=== PATIENT | male | born 1970 | race Caucasian/White ===

== ENCOUNTER 2019-03-05 19:26 | Emergency (ER) | payer SELFPAY ==
[~2019-03-05] VITALS: Ht 185.4 cm; Wt 61.2 kg
[2019-03-05 19:30] VITALS: BP_SYST 106
--- NOTE | 2019-03-05 19:40 | NUR ---
Pt to ER with a complaint of left hip aching pain /. No other complaint noted. No respiratory distress noted. Has history of dm. left leg amputated. Safety precaution observed, side rails up. Will continue to monitor Pt.
[2019-03-05] MEDS ORDERED: INSU100V9 SQ (19:41)
[2019-03-05] MEDS ORDERED: MORPHINE 2 MG/ML INJ. SYRINGE IVP ONE ×3 (19:45→23:00)
[2019-03-05] MEDS ORDERED: NACL 0.9% 1,000 ML IV ONE (19:45)
--- NOTE | 2019-03-05 20:00 | NUR ---
ER MD Wade at bedside for medical evaluation.
--- NOTE | 2019-03-05 20:10 | NUR ---
# 20 gauge angiocath placed to RAC. Use of asceptic technique. Opsite placed over site. Blood return noted. Blood for lab drawn from site. Flushed with 10 cc of normal saline. No evidence of infiltration noted. Patient tolerated well.
--- NOTE | 2019-03-05 20:30 | NUR ---
Pt to xray, Pt stable
[2019-03-05 20:31] LABS: BASOPHILS # (AUTO) 0.1 K/uL (0.0-0.2); BASOPHILS % (AUTO) 1.1 % (0.0-2.0); EOSINOPHILS # (AUTO) 0.8 K/uL (0.0-0.4); EOSINOPHILS % (AUTO) 6.6 % (0.0-4.0); HEMATOCRIT 33.4 % (36-54); HEMOGLOBIN 11.2 g/dL (14.0-18.0); LYMPHOCYTES # (AUTO) 4.4 K/uL (1.0-5.5); LYMPHOCYTES % (AUTO) 37.9 % (20.5-51.5); MEAN CORPUSCULAR HEMOGLOBIN 32 pg (27-31); MEAN CORPUSCULAR HGB CONC 34 % (32-36); MEAN CORPUSCULAR VOLUME 94 fL (79.0-98.0); MONOCYTES # (AUTO) 0.6 K/uL (0.0-1.0); MONOCYTES % (AUTO) 5.3 % (1.7-9.3); NEUTROPHILS # (AUTO) 5.7 K/uL (1.8-7.7); NEUTROPHILS % (AUTO) 49.1 % (40.0-70.0); PLATELET COUNT (AUTO) 270 K/uL (130-430); RED BLOOD CELL COUNT(AUTO) 3.53 MIL/uL (4.2-6.2); RED CELL DISTRIBUTION WIDTH 13.8 % (9.0-15.0); WHITE BLOOD COUNT (AUTO) 11.7 K/uL (4.8-10.8)
[2019-03-05 20:45] LABS: ANION GAP 13 (5-15); CALCIUM 9.3 mg/dL (8.4-11.0); CHLORIDE 100 mmol/L (98-107); CREATININE 1.77 mg/dL (0.55-1.30); GLUCOSE 162 mg/dL (70-99); POTASSIUM 4.2 mmol/L (3.5-5.1); SODIUM SERUM 136 mmol/L (136-145); UREA NITROGEN, BLOOD 27 mg/dL (8-21)
--- NOTE | 2019-03-05 20:50 | NUR ---
Pt back in the room
[2019-03-05 20:51] LABS: ACETAMINOPHEN < 1 ug/mL (1-30); ALANINE AMINOTRANSFERASE 34 U/L (12-78); ALBUMIN 3.8 g/dL (3.4-4.8); ALCOHOL, BLOOD 178 mg/dL (<10); ASPARTATE AMINOTRANSFERASE 25 U/L (10-37); GFR AFRICAN AMERICAN 53 mL/min (>90); TOTAL BILIRUBIN 0.1 mg/dL (0.0-1.0)
--- NOTE | 2019-03-05 22:00 | NUR ---
Pt in bed, no acute distress noted. Will continue to monitor Pt.
--- NOTE | 2019-03-05 23:10 | NUR ---
Ambulance here to [facility] Pt. Report given to Lorenzo SERRANO.
[2019-03-05 23:11] VITALS: BP_SYST 118
--- NOTE | 2019-03-05 23:11 | NUR ---
Patient to be transferred to [facility]. Is being transferred due to higher level of care. Receiving facility has accepting physician and available space. ER physician has signed transfer form. Patient or responsible democrat has agreed to transfer and signed form. Patient belongings inventoried and will be sent with patient. Copy of nursing notes, lab reports, EKG, Physicians Orders and X-rays to be sent with patient. Report called to Lorenzo SERRANO at receiving facility. Receiving physician is Dr. Longo. Ambulance service has been called for transfer. ETA is 35 min.
== END 2019-03-05 23:11 | disposition short-term general hospital (02) ==
LOC: SED 19:26
DX: S72.142A Displaced intertrochanteric fracture of left femur, initial encounter for closed fracture (principal); E11.9 Type 2 diabetes mellitus without complications; Z79.4 Long term (current) use of insulin; Z89.512 Acquired absence of left leg below knee; Z88.1 Allergy status to other antibiotic agents; W18.39XA Other fall on same level, initial encounter; Y93.89 Activity, other specified; Y92.89 Other specified places as the place of occurrence of the external cause; Y99.8 Other external cause status
CPT/HCPCS: 36415; 74176; 80053; 85025; 93005; 96374; 96376; 99285; G0480; G0481; G0482; J2270; J7030